=== PATIENT | male | born 1975 | race Caucasian/White ===

== ENCOUNTER 2021-12-14 13:59 | Emergency (ER) | payer OTHER, SELFPAY ==
--- NOTE | 2021-12-14 14:25 | DI.RAD.S_ITS ---
PROCEDURE: XR KNEE RT 3V INDICATIONS: fall TECHNIQUE: 3 views of the knee were acquired. COMPARISON: None. FINDINGS: Bones: No fractures or dislocations. No suspicious bony lesions. Soft tissues: No joint effusion. No suspicious soft tissue calcifications. IMPRESSION: Plain film study within normal limits. If it would be helpful for clinical management decision making, please consider a dedicated, scheduled knee MRI for further evaluation (assuming that there is no contraindication). Dictated by: Wilber Mak M.D. on 12/14/2021 at 14:05 Approved by: Wilber Mak M.D. on 12/14/2021 at 14:05
[2021-12-14 14:32] VITALS: BP 161/89; PULSE 81; RESP 18; TEMP 36.8; O2SAT 98; BMI 23.4
--- NOTE | 2021-12-14 15:25 | ED_ITS ---
HPI - Extremity Injury (Lower) General Chief Complaint: Extremity Injury, Lower Stated Complaint: Fall, Multi abrasions R arm, L hand, R knee Time Seen by Provider: 12/14/21 14:27 Source: patient Mode of arrival: Family Vehicle History of Present Illness HPI Narrative: Patient is a 46-year-old healthy male who presents after fall well trail running. His tripped in front of him and he fell on top of her. He has multiple abrasions on his right knee right arm. His left hand not in abrasion. He is able to ambulate. No other injuries. Mostly complaining of skin abrasions but mild right knee pain. Review of Systems Review of Systems Narrative: GENERAL: Denies chills,fever HEENT: Denies throat pain RESPIRATORY: Denies dyspnea, cough, wheezing CARDIOVASCULAR: Denies chest pain, palpitations GASTROINTESTINAL: Denies nausea, vomiting MUSCULOSKELETAL: Denies extremity pain, injury SKIN: See HPI NEUROLOGIC: Denies weakness, dizziness, headache, numbness 8 point review of systems is negative except for those stated above and HPI Patient History Social History Smoking Status: Never smoker Smoking Status: Never smoker alcohol intake frequency: 0-2 drinks per day Substance Use Type: does not use Exam Initial Vital Signs Initial Vital Signs: Vital Signs Temperature 98.2 F 12/14/21 14:32 Pulse Rate 81 12/14/21 14:32 Respiratory Rate 18 12/14/21 14:32 Blood Pressure 161/89 H 12/14/21 14:32 Pulse Oximetry 98 12/14/21 14:32 Oxygen Delivery Method 12/14/21 14:32 GENERAL: Well-appearing, well-nourished and in no acute distress. CARDIOVASCULAR: peripheral pulses in tact, cap refill <2 sec RESPIRATORY: No respiratory distress, speaks in full sentences without difficulty EXTREMITIES: Normal range of motion, no clubbing or edema. Neurovascularly intact Right lower extremity abrasion noted no significant swelling or effusion distal pedal pulse intact right knee is stable. NEUROLOGICAL: Cranial nerves II through XII grossly intact. Normal gait and speech. SKIN: Skin abrasion right knee right arm, left palm Course Orders Ordered: Discontinued Medications Acetaminophen (Acetaminophen 325 Mg Tablet) 975 mg PO NOW ONE Stop: 12/14/21 15:37 Last Admin: 12/14/21 15:43 Dose: 975 mg Documented By: BOBY Ibuprofen (Ibuprofen 400 Mg Tablet) 800 mg PO NOW ONE Stop: 12/14/21 15:37 Last Admin: 12/14/21 15:43 Dose: 800 mg Documented By: BOBY Vital Signs Vital signs: Vital Signs - 8 hr 12/14/21 14:32 Temperature 98.2 F Pulse Rate 81 Respiratory Rate 18 Blood Pressure 161/89 H Pulse Oximetry 98 Oxygen Delivery Method Room Air MDM - Extremity Injury (Lower) Imaging Data Extremity x-ray #1: Radiologist's Impression: XRay Report Signed Patient: Drake Castro MR#: [id number] : 1975 Acct:[id number] Age/Sex: 46 / M Date of Service: 12/14/21 Loc: ED Accession Number: [id number] ?? Procedure: XR knee RT 3V Ordering Provider: Jocelin Fierro D.O. PROCEDURE:? XR KNEE RT 3V ? INDICATIONS:? fall ? TECHNIQUE:? 3 views of the knee were acquired.? ? COMPARISON:? None. ? FINDINGS:? ? Bones:? No fractures or dislocations.? No suspicious bony lesions.? ? Soft tissues:? No joint effusion.? No suspicious soft tissue calcifications.? ? ? IMPRESSION:? Plain film study within normal limits. ? If it would be helpful for clinical management decision making, please consider a dedicated, scheduled knee MRI for further evaluation (assuming that there is no contraindication).? ? ? Dictated by: Wilber Mak M.D. on 12/14/2021 at 14:05 ?? [facility] Narrative Medical decision making narrative: Patient overall appears well. His multiple abrasions no gross bony deformity x- ray is negative. Discharge Plan Departure Patient Disposition: Home Clinical Impression: Abrasion Instructions: Skin Wound Activity Restrictions/Additional Instructions: *You have been diagnosed with multiple abrasions *What to do: Keep wounds clean and dry with soap and water *Continue to take medications as directed Apply antibiotic ointment 1-2 times daily Ibuprofen 600 mg every 6 hours [id number] pain Tylenol 1000 mg every 6 hours if needed for [id number] *Follow up with your primary care provider in 2-3 days or call [phone] *Return to ER if you should have redness swelling drainage or any new, worsening or concerning symptoms Visit Report Forms: Patient Portal/API
[2021-12-14] MEDS: ACETAMINOPHEN 325 MG TABLET 975 MG PO (15:43)
[2021-12-14] MEDS: IBUPROFEN 400 MG TABLET 800 MG PO (15:43)
[2021-12-14 15:54] VITALS: BP 140/84; PULSE 63; RESP 18; O2SAT 96
== END 2021-12-14 15:59 | disposition home or self-care (01) ==
PROVIDERS: Emergency Provider Emergency Medicine
DX: S80.211A Abrasion, right knee, initial encounter (principal); M25.561 Pain in right knee; W01.0XXA Fall on same level from slipping, tripping and stumbling without subsequent striking against object, initial encounter
CPT/HCPCS: 73562; 99283